=== PATIENT | male | born 1990 | race Caucasian/White ===

== ENCOUNTER 2021-03-27 07:44 | Outpatient (CLI) | payer OTHER | END 2021-03-27 07:45 | disposition home or self-care (01) | LOC: SCSMRI 07:44 | PROVIDERS: ATTEND Orthopaedic Surgery | DX: M25.561 Pain in right knee (principal); S83.231A Complex tear of medial meniscus, current injury, right knee, initial encounter ==

== ENCOUNTER 2021-05-01 13:46 | Outpatient (CLI) | payer OTHER ==
[2021-05-01 16:25] LABS: #Eosinphils 0.3 10x3/uL (0.0-0.5); #Monocytes 0.4 10x3/uL (0.0-1.1); #Neutrophils 4.9 10x3/uL (1.5-8.4); %Basophils 0.3 % (0.0-2.0); %Eosinophils 2.8 % (0.0-6.0); %Lymphocytes 36.9 % (18.0-47.0); %Monocytes 4.4 % (0.0-10.0); %Neutrophils 55.3 % (40.0-75.0); Hemoglobin 15.3 g/dL (13.5-17.5); Mean Corpuscular HGB CONC 35.2 g/dL (32.0-36.0); Mean Corpuscular Hemoglobin 31.6 pg (27.0-33.0); Mean Corpuscular Volume 89.9 fl (81.2-95.1); Mean Platelet Volume 11.6 fl (7.4-10.4); Platelet Count 205 10x3/uL (150-450); Red Blood Cell (RBC) Count 4.84 10x6/uL (4.32-5.72); White Blood Cell (WBC) Count 8.9 10x3/uL (3.5-10.5)
[2021-05-02 00:58] LABS: SARS-CoV-2 PCR by NAA Not Detected (NotDetected)
== END 2021-05-01 13:47 | disposition home or self-care (01) ==
LOC: LABBT 13:46
PROVIDERS: ATTEND Orthopaedic Surgery
DX: Z01.812 Encounter for preprocedural laboratory examination (principal); T84.89XA Other specified complication of internal orthopedic prosthetic devices, implants and grafts, initial encounter; S83.241A Other tear of medial meniscus, current injury, right knee, initial encounter; Z20.822 Contact with and (suspected) exposure to COVID-19
CPT/HCPCS: 85025; U0003; U0005

== ENCOUNTER 2021-05-04 07:06 | Day surgery (SDC) | payer OTHER ==
[2021-05-04] MEDS ORDERED: Midazolam HCl 2 mg/2 ml Vial ONE (08:01)
[2021-05-04] MEDS ORDERED: Fentanyl 100 MCG/2 ML VIAL ONE ×2 (08:01→08:15)
[2021-05-04] MEDS ORDERED: PROPOFOL 20 ML ONE (08:05)
[2021-05-04] MEDS ORDERED: Dexmedetomidine 200 MCG/2 ML VIAL ONE (08:15)
[2021-05-04] MEDS ORDERED: ceFAZolin 2 GM/DEX 5% 100 ML BAG ONE (08:19)
[2021-05-04] MEDS ORDERED: Dexamethasone 20 MG/5 ML VIAL ONE (08:29)
[2021-05-04] MEDS ORDERED: ePHEDrine 50 MG/ML VIAL ONE (08:29)
[2021-05-04] MEDS ORDERED: Lidocaine 1% PF 5 ML VIAL ONE (08:29)
[2021-05-04] MEDS ORDERED: PROPOFOL 200 MG/20 ML VIAL ONE (08:29)
[2021-05-04] MEDS ORDERED: Lidocaine 2% w/Epinephrine 1:200K 20 ML VIAL ONE (08:29)
[2021-05-04] MEDS ORDERED: Bupivacaine PF 0.5% 30 ML VIAL ONE (08:29)
[2021-05-04] MEDS ORDERED: Ondansetron PF 4 MG/2 ML Vial ONE (08:29)
[2021-05-04] MEDS ORDERED: Lidocaine 1% (PF) 30 ML VIAL ONE (08:55)
== END 2021-05-04 12:15 | disposition home or self-care (01) ==
LOC: SDC 07:06
PROVIDERS: ATTEND Orthopaedic Surgery
PROC: 0SBC4ZZ Excision of Right Knee Joint, Percutaneous Endoscopic Approach (ICD-10-PCS; principal; 2021-05-04)
DX: S83.241A Other tear of medial meniscus, current injury, right knee, initial encounter (principal); T84.89XA Other specified complication of internal orthopedic prosthetic devices, implants and grafts, initial encounter; M23.41 Loose body in knee, right knee; I10 Essential (primary) hypertension; G47.33 Obstructive sleep apnea (adult) (pediatric); Z87.891 Personal history of nicotine dependence; Z79.899 Other long term (current) drug therapy
CPT/HCPCS: J1100; J2001; J2250; J2405; J2704; J3010; J3490; S0020